=== PATIENT | female | born 1965 | race African-American/Black ===

== ENCOUNTER 2020-09-11 01:56 | Emergency (ER) | payer SELFPAY ==
[~2020-09-11] VITALS: Ht 149.9 cm; Wt 78.0 kg
[2020-09-11 02:01] VITALS: BP_SYST 141
[2020-09-11] MEDS ORDERED: ACETAMINOPHEN/CODEINE 300 MG-30 MG TABLET PO ONE (02:45)
[2020-09-11] MEDS ORDERED: ACETAMINOPHEN/CODEINE 300 MG-30 MG TABLET ONE (02:45)
[2020-09-11 02:46] VITALS: BP_SYST 141
== END 2020-09-11 02:46 | disposition home or self-care (01) ==
LOC: SED 01:56
DX: J20.9 Acute bronchitis, unspecified (principal); Z88.8 Allergy status to other drugs, medicaments and biological substances
CPT/HCPCS: 99283